=== PATIENT | female | born 1970 | race Caucasian/White ===

== ENCOUNTER 2017-01-23 20:07 | Emergency (ER) | payer OTHER ==
[~2017-01-23 20:07] MED LIST: ACET500CAP PO; DENIES MEDS
== END 2017-01-23 20:39 | disposition home or self-care (01) ==
LOC: ER 20:07
DX: S93.602A Unspecified sprain of left foot, initial encounter (principal); Z88.0 Allergy status to penicillin; Z88.2 Allergy status to sulfonamides; Z88.8 Allergy status to other drugs, medicaments and biological substances; Z79.899 Other long term (current) drug therapy; Z91.040 Latex allergy status; X58.XXXA Exposure to other specified factors, initial encounter
CPT/HCPCS: 73610-LT; 73630-LT; 99283; A9270-GY